=== PATIENT | male | born 1970 | race Caucasian/White ===

== ENCOUNTER 2016-09-25 19:37 | Emergency (ER) | payer MEDICAID ==
[2016-09-25 21:15] VITALS: BP 126/86
== END 2016-09-25 21:15 | disposition home or self-care (01) ==
LOC: ED 19:37
DX: S61.411A Laceration without foreign body of right hand, initial encounter (principal); W26.9XXA Contact with unspecified sharp object(s), initial encounter; Y93.89 Activity, other specified; Y92.89 Other specified places as the place of occurrence of the external cause; Y99.8 Other external cause status
CPT/HCPCS: 90715; A4570